=== PATIENT | male | born 1980 | race Caucasian/White ===

== ENCOUNTER 2019-05-09 17:40 | Inpatient (IN) | payer OTHER ==
[~2019-05-09 17:40] MED LIST: DEXAMETHASONE SOD PHOSPHATE INJ 4 MG/1 ML VIAL ONE; ONDANSETRON HCL INJ/PF 4 MG/2 ML SDV ONE; ROCURONIUM BROMIDE INJ 50 MG/5 ML VIAL IV ONE; SUCCINYLCHOLINE CHLORIDE INJ 200 MG/10 ML VIAL ONE
[2019-05-09] MEDS ORDERED: MORPHINE SULFATE 10 MG/ML INJ IV ONE ×2 (18:26→18:42)
[2019-05-09] MEDS ORDERED: NORMAL SALINE 1000 ML 1,000 ML IV ONE (18:26)
[2019-05-09] MEDS ORDERED: ONDANSETRON HCL INJ/PF 4 MG/2 ML SDV IV ONE (18:26)
[2019-05-09 18:45] LABS: ABSOLUTE EOSINOPHILS # (AUTO) 0.2 10^3/uL (0.0-0.6); ABSOLUTE LYMPHOCYTES (AUTO) 2.4 10^3/uL (0.5-4.7); ABSOLUTE MONOCYTES (AUTO) 1.3 10^3/uL (0.1-1.4); ABSOLUTE NEUT (AUTO) 10.5 10^3/uL (1.7-8.2); BASOPHILS % (AUTO) 0.3 % (0-2); EOSINOPHILS % (AUTO) 1.1 % (0-6); HEMATOCRIT 45.2 % (37.9-51.0); LYMPHOCYTES % (AUTO) 16.8 % (13-45); MEAN CORPUSCULAR HEMOGLOBIN 31.7 pg (27.0-33.4); MEAN CORPUSCULAR HGB CONC 35.4 g/dL (32.0-36.0); MEAN CORPUSCULAR VOLUME 90 fl (80-97); MONOCYTES % (AUTO) 8.8 % (3-13); PLATELET COUNT 259 10^3/uL (150-450); RED BLOOD COUNT 5.04 10^6/uL (4.35-5.55); RED CELL DISTRIBUTION WIDTH 12.3 % (11.5-14.0); TOTAL CELLS COUNTED % (AUTO) 100 %; WHITE BLOOD COUNT 14.4 10^3/uL (4.0-10.5)
--- NOTE | 2019-05-09 18:51 | ER Document Report ---
ED General - General Chief Complaint: Abdominal Pain Stated Complaint: ABDOMINAL PAIN Time Seen by Provider: 05/09/19 18:26 TRAVEL OUTSIDE OF THE [place] IN LAST 30 DAYS: No - HPI Notes: Patient is a 38-year-old male that presents to the emergency department for chief complaint of right lower quadrant abdominal pain. Patient has had constant sharp pain in his right lower quadrant for the last 2 days. He reports the pain has increased in intensity. He reports nausea with 2 episodes of emesis. He denies any change in bowel movements and denies diarrhea. He has no history of abdominal surgery in the past. He does not believe he has had a fever. Last oral intake was at 3 PM. Patient has not taken any medication at home for pain. He states any movement including coughing, the bumps in the road on the way to the ER, and sitting up in bed causes severe pain. Past Medical History: Right hip arthritis, right eye blindness Past Surgical History: Negative Social History: Daily tobacco, occasional alcohol, denies drug use Family History: Reviewed and noncontributory for presenting illness Allergies: Reviewed, see documented allergy list. REVIEW OF SYSTEMS: CONSTITUTIONAL : No fever No chills diaphoresis No recent illness EENT: No vision changes No congestion No sore throat CARDIOVASCULAR: No chest pain No palpitations RESPIRATORY: No shortness of breath No cough No difficulty breathing GASTROINTESTINAL: abdominal pain nausea vomiting No diarrhea GENITOURINARY: No dysuria No hematuria No difficulty urinating MUSCULOSKELETAL: No back pain No leg pain No arm pain SKIN: No rashes No lesions LYMPHATIC: No swollen, enlarged glands. NEUROLOGICAL: No lightheadedness No headache No weakness No paresthesias PSYCHIATRIC: No anxiety No depression PHYSICAL EXAMINATION: Vital signs reviewed, nursing noted reviewed. GENERAL: Ill-appearing, obese and in moderate acute distress. HEAD: Atraumatic, normocephalic. EYES: Eyes appear normal, extraocular movements intact, sclera anicteric, conjunctiva are normal. ENT: nares patent, oropharynx clear without exudates. Moist mucous membranes. NECK: Normal range of motion, supple without lymphadenopathy LUNGS: Breath sounds clear to auscultation bilaterally and equal. No wheezes rales or rhonchi. HEART: Tachycardic rate and regular rhythm without murmurs ABDOMEN: Diffusely tender with right lower quadrant guarding, positive rebound tenderness, abdominal pain with heel strike, soft. Positive psoas sign EXTREMITIES: Nontender, good range of motion, no pitting or edema. NEUROLOGICAL: No focal neurological deficits. Moves all extremities spontaneously Motor and sensory grossly intact on exam. PSYCH: Anxious mood, normal affect. SKIN: Warm, diaphoretic, normal turgor, no rashes or lesions noted on exposed skin - Related Data Allergies/Adverse Reactions: No Known Allergies Allergy (Verified 05/09/19 17:42) Past Medical History - Social History Smoking Status: Current Every Day Smoker Family History: Reviewed & Not Pertinent Physical Exam - Vital signs Vitals: Temp Pulse Resp BP Pulse Ox 97.8 F 112 H 16 169/104 H 96 05/09/19 17:43 05/09/19 17:43 05/09/19 17:43 05/09/19 17:43 05/09/19 17:43 Course - Re-evaluation Re-evalutation: 05/09/19 18:51 Vitals reviewed. Nursing notes reviewed. Patient presented tachycardic and diaphoretic. He appears uncomfortable and has a peritoneal abdominal exam. He was given IV fluids, Zofran and morphine for symptomatic management. I discussed his care with Dr. Decker for the likelihood of ruptured appendicitis with peritonitis. He requested a noncontrast CT scan be done now. Patient does have a leukocytosis of 14 05/09/19 19:[address] scan is consistent with ruptured appendicitis. Patient evaluated in the ED by Dr. Decker and will be taken to surgery from the emergency room. Laboratory 05/09/19 05/09/19 18:25 18:25 WBC 14.4 H RBC 5.04 Hgb 16.0 Hct 45.2 MCV 90 MCH 31.7 MCHC 35.4 RDW 12.3 Plt Count 259 Seg Neutrophils % 73.0 Lymphocytes % 16.8 Monocytes % 8.8 Eosinophils % 1.1 Basophils % 0.3 Absolute Neutrophils 10.5 H Absolute Lymphocytes 2.4 Absolute Monocytes 1.3 Absolute Eosinophils 0.2 Absolute Basophils 0.0 Sodium 136.8 L Potassium 4.5 Chloride 100 Carbon Dioxide 26 Anion Gap 11 BUN 13 Creatinine 0.64 Est GFR ( Amer) > 60 Est GFR (Non-Af Amer) > 60 Glucose 110 Calcium 9.7 Total Bilirubin 1.4 H Direct Bilirubin 0.4 Neonat Total Bilirubin Not Reportable Neonat Direct Bilirubin Not Reportable Neonat Indirect Bili Not Reportable AST 198 H ALT 405 H Alkaline Phosphatase 85 Total Protein 8.5 H Albumin 4.6 Lipase 50.9 - Vital Signs Vital signs: Temp Pulse Resp BP Pulse Ox 97.7 F 83 20 144/80 H 96 05/09/19 19:53 05/09/19 19:53 05/09/19 19:53 05/09/19 19:53 05/09/19 19:53 - Laboratory Result Diagrams: 05/09/19 18:25 05/09/19 18:25 Laboratory results interpreted by me: 05/09/19 05/09/19 18:25 18:25 WBC 14.4 H Absolute Neutrophils 10.5 H Sodium 136.8 L Total Bilirubin 1.4 H AST 198 H ALT 405 H Total Protein 8.5 H Critical Care Note - Critical Care Note Total time excluding time spent on procedures (mins): 35 Comments: Critical care time 35 exclusive from separate billable procedures for a patient requiring complex medical decision making, and high potential for clinical deterioration. Time spent obtaining history from patient or surrogate, discussions with consultants, development of treatment plan with patient or surrogate, evaluation of patient's response to treatment, examination of patient, ordering and performing treatments and interventions, ordering and review of laboratory studies, re-evaluation of patient's condition, ordering and review of radiographic studies and review of old charts Discharge - Discharge Clinical Impression: Ruptured appendicitis Sepsis Qualifiers: Sepsis type: sepsis due to unspecified organism Qualified Code(s): A41.9 - Sepsis, unspecified organism Condition: Good Disposition: ADMITTED INPATIENT Admitting Provider: Surgicalist Unit Admitted: OR
[2019-05-09 18:56] LABS: ALANINE AMINOTRANSFERASE 405 U/L (21-72); ALBUMIN 4.6 g/dL (3.5-5.0); ALKALINE PHOSPHATASE 85 U/L (38-126); ANION GAP 11 (5-19); ASPARTATE AMINO TRANSFERASE 198 U/L (17-59); BILIRUBIN,DIRECT 0.4 mg/dL (0.0-0.4); BILIRUBIN,TOTAL 1.4 mg/dL (0.2-1.3); BLOOD UREA NITROGEN 13 mg/dL (7-20); CALCIUM 9.7 mg/dL (8.4-10.2); CARBON DIOXIDE 26 mmol/L (22-30); CHLORIDE 100 mmol/L (98-107); GLUCOSE 110 mg/dL (75-110); LIPASE 50.9 U/L (23-300); POTASSIUM 4.5 mmol/L (3.6-5.0); SODIUM 136.8 mmol/L (137-145); TOTAL PROTEIN 8.5 g/dL (6.3-8.2)
[2019-05-09] MEDS ORDERED: PIPERACILLIN/TAZOBACTAM 3.375 GM VIAL IV ONE (19:13)
--- NOTE | 2019-05-09 19:46 | PDOC H&P ---
History of Present Illness Admission Date/PCP: 05/09/19 History of Present Illness: AJ JURADO III is a 38 year old malethat presents to the emergency department for chief complaint of right lower quadrant abdominal pain. Patient has had constant sharp pain in his right lower quadrant for the last 2 days. He reports the pain has increased in intensity. He reports nausea with 2 episodes of emesis. He denies any change in bowel movements and denies diarrhea. He has no history of abdominal surgery in the past. He does not believe he has had a fever. Last oral intake was at 3 PM. Patient has not taken any medication at home for pain. He states any movement including coughing, the bumps in the road on the way to the ER, and sitting up in bed causes severe pain Social History Smoking Status: Current Every Day Smoker Family History Parental Family History Reviewed: No Children Family History Reviewed: NA Sibling(s) Family History Reviewed.: NA Medication/Allergy Allergies/Adverse Reactions: No Known Allergies Allergy (Verified 05/09/19 17:42) Review of Systems Constitutional: PRESENT: anorexia, chills, fatigue, fever(s) Eyes: ABSENT: visual disturbances Ears: ABSENT: hearing changes Nose, Mouth, and Throat: ABSENT: as per HPI, headache(s), mouth pain, sore throat, vertigo, other Breasts: ABSENT: as per HPI, other Cardiovascular: ABSENT: as per HPI, chest pain, dyspnea on exertion, edema, orthropnea, palpitations, other Respiratory: ABSENT: as per HPI, cough, dyspnea, hemoptysis, sputum, other Gastrointestinal: PRESENT: abdominal pain, nausea, vomiting Genitourinary: ABSENT: dysuria, hematuria Musculoskeletal: PRESENT: other - Right hip pain Integumentary: ABSENT: rash, wounds Neurological: ABSENT: abnormal gait, abnormal speech, confusion, dizziness, focal weakness, syncope Psychiatric: ABSENT: anxiety, depression, homidical ideation, suicidal ideation Endocrine: ABSENT: cold intolerance, heat intolerance, polydipsia, polyuria Hematologic/Lymphatic: ABSENT: easy bleeding, easy bruising Physical Exam Vital Signs: Temp Pulse Resp BP Pulse Ox 97.8 F 112 H 16 169/104 H 96 05/09/19 17:43 05/09/19 17:43 05/09/19 17:43 05/09/19 17:43 05/09/19 17:43 Intake & Output 05/08/19 05/09/19 05/10/19 06:59 06:59 06:59 Weight 119.8 kg General appearance: PRESENT: mild distress, obese Head exam: PRESENT: normocephalic Eye exam: PRESENT: EOMI Ear exam: PRESENT: normal external ear exam Mouth exam: PRESENT: moist Neck exam: PRESENT: full ROM Respiratory exam: PRESENT: clear to auscultation [place] Cardiovascular exam: PRESENT: RRR Pulses: PRESENT: normal radial pulses, normal femoral pulses Vascular exam: PRESENT: normal capillary refill GI/Abdominal exam: PRESENT: firm, guarding, rebound Rectal exam: PRESENT: deferred Extremities exam: PRESENT: full ROM Musculoskeletal exam: PRESENT: full ROM Neurological exam: PRESENT: alert, awake, oriented to person, oriented to place Psychiatric exam: PRESENT: appropriate affect Skin exam: PRESENT: dry Results Laboratory Results: 05/09/19 18:25 05/09/19 18:25 05/09/19 05/09/19 18:25 18:25 WBC 14.4 H RBC 5.04 Hgb 16.0 Hct 45.2 MCV 90 MCH 31.7 MCHC 35.4 RDW 12.3 Plt Count 259 Seg Neutrophils % 73.0 Lymphocytes % 16.8 Monocytes % 8.8 Eosinophils % 1.1 Basophils % 0.3 Absolute Neutrophils 10.5 H Absolute Lymphocytes 2.4 Absolute Monocytes 1.3 Absolute Eosinophils 0.2 Absolute Basophils 0.0 Sodium 136.8 L Potassium 4.5 Chloride 100 Carbon Dioxide 26 Anion Gap 11 BUN 13 Creatinine 0.64 Est GFR ( Amer) > 60 Est GFR (Non-Af Amer) > 60 Glucose 110 Calcium 9.7 Total Bilirubin 1.4 H AST 198 H ALT 405 H Alkaline Phosphatase 85 Total Protein 8.5 H Albumin 4.6 Lipase 50.9 Assessment & Plan - Time Critical Time spent with patient: 35 or more minutes - Plan Summary Plan Summary: Perforated appendicitis Plan laparoscopic possible open appendectomy Risk benefits of the procedure including bleeding infection pulmonary embolism stroke myocardial infarction and have been discussed injury to adjacent organs including the small bowel: Ureters bladder have been discussed need for additional surgery sepsis recurrent abdominal infections and abscesses have been discussed He understands these risks and benefits and agrees to proceed
[2019-05-09] MEDS ORDERED: MIDAZOLAM 2 MG/2 ML INJ ONE (19:47)
[2019-05-09] MEDS ORDERED: FENTANYL CITRATE INJ/PF 100 MCG/2 ML AMPUL ONE ×2 (19:47→21:12)
[2019-05-09] MEDS ORDERED: MORPHINE SULFATE 10 MG/ML INJ ONE (19:48)
[2019-05-09] MEDS ORDERED: PROPOFOL INJ 200 MG/20 ML VIAL IV ONE (19:48)
[2019-05-09] MEDS ORDERED: BUPIVACAINE HCL 0.25% /EPINEPHRINE INJ/PF 30 ML SDV ONE (19:55)
--- NOTE | 2019-05-09 20:03 | RADIOLOGY REPORT (SQ) ---
EXAM DESCRIPTION: CT ABD/PELVIS NO ORAL OR IV COMPLETED DATE/TIME: 05/09/2019 6:50 pm REASON FOR STUDY: RLQ pain COMPARISON: None. TECHNIQUE: CT scan of the abdomen and pelvis performed without intravenous or oral contrast. Images reviewed with lung, soft tissue, and bone windows. Reconstructed coronal and sagittal MPR images revi ewed. All images stored on PACS. All CT scanners at this facility use dose modulation, iterative reconstruction, and/or weight based d osing when appropriate to reduce radiation dose to as low as reasonably achievable (ALARA). [facility]: Dose Right [facility]: CareDose [facility]: Dose Right [facility]: Teradose 4D [facility]: Smart seedchange RADIATION DOSE: CT Rad equipment meets quality standard of care and radiation dose reduction techniq ues were employed. CTDIvol: 18.7 mGy. DLP: 1074 mGy-cm.mGy. LIMITATIONS: None. FINDINGS: LOWER CHEST: Mild bibasilar atelectasis. No pleural effusion. NON-CONTRASTED LIVER, SPLEEN, ADRENALS: Evaluation limited by lack of IV contrast. No identified sign ificant masses. PANCREAS: No peripancreatic inflammatory changes. GALLBLADDER: No identified stones by CT criteria. No inflammatory changes to suggest cholecystitis. RIGHT KIDNEY AND URETER: Assessment for masses limited by lack of IV contrast. No significant calci fications. No hydronephrosis or hydroureter. LEFT KIDNEY AND URETER: Assessment for masses limited by lack of IV contrast. No significant calcif ications. No hydronephrosis or hydroureter. AORTA AND RETROPERITONEUM: No abdominal aortic aneurysm. No retroperitoneal masses or hemorrhage. BOWEL AND PERITONEAL CAVITY: No dilated bowel loops to suggest obstruction. APPENDIX: A normal appendix is not identified. Extensive inflammatory changes are seen at the right lower quadrant adjacent to the cecum. Limited evaluation for abscess formation in the absence of int ravenous contrast. There are mildly enlarged lymph nodes at the right lower quadrant measuring 10 mm in short axis. PELVIS, BLADDER, AND ABDOMINAL WALL:No pelvic mass. No free fluid. Bladder decompressed. BONES: No significant findings. IMPRESSION: 1. A normal appendix is not identified. Extensive inflammatory changes at the right low er quadrant adjacent to the cecum, may be secondary to perforated acute appendicitis with phlegmonous changes. Limited evaluation for abscess formation in the absence of intravenous contrast. Clinical correlation recommended. 2. Mild right lower quadrant adenopathy. COMMENT: Quality ID # [id number]: Final reports with documentation of one or more dose reduction techniques (e.g., Automated exposure control, adjustment of the mA and/or kV according to patient size, use of iterative reconstruction technique) TECHNICAL DOCUMENTATION: JOB ID: [id number] 2010 [employer]- All Rights Reserved Reading location - IP/workstation name: [email or web address]
[2019-05-09] MEDS ORDERED: MEPERIDINE HCL/PF INJ 25 MG/1 ML DISP.SYRIN IV PRN (20:56)
[2019-05-09] MEDS ORDERED: PROMETHAZINE HCL INJ 25 MG/1 ML VIAL IV PRN ×2 (20:56)
[2019-05-09] MEDS ORDERED: MORPHINE SULFATE 10 MG/ML INJ IV PRN (20:56)
[2019-05-09] MEDS ORDERED: FENTANYL CITRATE INJ/PF 100 MCG/2 ML AMPUL IV PRN ×3 (20:56)
[2019-05-09] MEDS ORDERED: DIPHENHYDRAMINE HCL 50 MG/ML VIAL IV PRN (20:56)
[2019-05-09] MEDS ORDERED: SUGAMMADEX SODIUM 200 MG/2 ML SDV IV ONE (21:12)
[2019-05-09] MEDS ORDERED: ONDANSETRON HCL INJ/PF 4 MG/2 ML SDV IV PRN (22:15)
[2019-05-09] MEDS ORDERED: DEXTROSE 40% GEL 15 GM TUBE PO PRN ×2 (22:15)
[2019-05-09] MEDS ORDERED: GLUCAGON,HUMAN RECOMB 1 MG INJ SUBCUT PRN (22:15)
[2019-05-09] MEDS ORDERED: DEXTROSE 50%-WATER 25 GM/50 ML DISP.SYRIN IV PRN ×2 (22:15)
[2019-05-09] MEDS ORDERED: ACETAMINOPHEN 1,000 MG/100 ML RTUPB IV ONE (22:15)
[2019-05-09] MEDS ORDERED: LORAZEPAM INJ 2 MG/1 ML VIAL ONE (22:17)
[2019-05-09] MEDS ORDERED: KETOROLAC TROMETHAMINE 60 MG/2 ML SDV ONE (22:17)
[2019-05-09] MEDS ORDERED: KETOROLAC TROMETHAMINE INJ/PF 30 MG/1 ML SDV IV SCH (22:30)
--- NOTE | 2019-05-09 22:33 | Operative Report ---
Nonrecallable Operative Report DATE OF SURGERY: 05/09/19 PREOPERATIVE DIAGNOSIS: perforated appendix POSTOPERATIVE DIAGNOSIS: perforated cecum OPERATION: diagnostic laparoscopy converted to open rt hemicolectomy SURGEON: ESTEBAN CHÁVEZ ANESTHESIA: GA TISSUE REMOVED OR ALTERED: rt colon COMPLICATIONS: none ESTIMATED BLOOD LOSS: 100 INTRAOPERATIVE FINDINGS: perforated colon PROCEDURE: Patient was brought to the operating room and awake alert stable condition placed the operative table supine position induced under general anesthesia and intubated There was prepped and draped in usual sterile manner for the procedure. After appropriate timeout a Veress needle was placed into the umbilicus and the abdomen was insufflated with 6 L of CO2 gas a supraumbilical 10 mm incision was made with a 15 blade and a 10 mm port placed in the abdominal cavity interabdominal visualization revealed no evidence of Veress needle or trocar injury left lower quadrant 12 mm port was placed under direct vision and Left-sided 5 mm port all under direct vision After we had good visualization we noted the cecum was involved in a phlegmon with some small bowel loops heaped up on top of the phlegmon once these were gently we identified the cecum. Cecum had an area of necrosis and I felt initially that it was at the base of the appendix but as I mobilized the appendix and noted that the appendix was normal. It appeared that the patient had a perforated cecum within normal based appendix and the terminal ileum also appeared to be normal. I therefore began mobilizing the right colon with the LigaSure device along the white line of T[place]t. As we completed we mobilized the a; in the hepatic flexure. Once this was accomplished was then had to make a transverse incision on the right abdomen to gain access to the specimen. We did this by making a transverse incision with a 10 blade just lateral to the umbilicus and carried our dissection down through subcutaneous tissue with Bovie cautery the fascia was then divided with Bovie cautery. Once we divided the rectus posterior sheath we were able to deliver the right colon and terminal ileum and into the wound. The terminal ileum and cecum appeared to be thickened and initially thought it may have a be Crohn's disease however there was a palpable mass within the cecum. Came across the terminal ileum with one firing of the ABDULAZIZ stapler with a blue cartridge approximately 5 cm proximal to the cecum and then divided the right co lonic mesentery with the LigaSure device all the way to the mid transverse colon just to the right of the middle colic artery. I then divided the proximal transverse colon with one from the Endo ABDULAZIZ stapler with a blue load. This allowed us to remove the specimen. We then approximated the terminal ileum to the transverse colon with 2-0 silk sutures and created a ileocolonic anastomosis in 2 layers the outer layer being 2-0 silk and the running inner layer 3-0 Vicryl. The mesenteric defect was then closed with interrupted 2-0 silk. We then returned the bowel back into the abdominal cavity irrigated the abdominal cavity with normal saline and suctioned dry. We then closed the posterior sheath with a running 0 Vicryl suture and the anterior sheath was closed with interrupted #1 Vicryl suture. Skin incisions were then all closed with standard skin clips which completed the procedure Estimated blood loss of procedure 100 cc sponge needle counts were correct x2 the patient was awakened in the operating explained transferred recovery in stable condition no complications.
[2019-05-09] MEDS ORDERED: FAMOTIDINE INJ/PF 20 MG/2 ML SDV IV ONE (22:45)
[2019-05-09] MEDS: ACETAMINOPHEN INJ/PF 1000 MG/100 ML SDV IV SCH (23:38)
[2019-05-10] MEDS: POTASSI CL 20 MEQ/D5-1/2NS 1L 1,000 ML IV PRN ×3 (01:20→20:10)
[2019-05-10] MEDS ORDERED: HYDRALAZINE HCL INJ/PF 20 MG/1 ML SDV IV ONE (01:30)
[2019-05-10] MEDS: MORPHINE SULFATE 10 MG/ML INJ IV PRN ×5 (02:06→20:05)
[2019-05-10] MEDS: HEPARIN SOD (PORCINE) 5,000 UNIT/ML 1 ML SYRINGE SUBCUT SCH ×3 (05:03→23:16)
[2019-05-10] MEDS: ACETAMINOPHEN INJ/PF 1000 MG/100 ML SDV IV SCH (05:08)
[2019-05-10] MEDS: NICOTINE 21 MG/24 HR PATCH.TD24 TD PRN (05:09)
[2019-05-10 07:33] LABS: ABSOLUTE MONOCYTES (AUTO) 0.9 10^3/uL (0.1-1.4); ABSOLUTE NEUT (AUTO) 13.5 10^3/uL (1.7-8.2); BASOPHILS % (AUTO) 0.1 % (0-2); HEMATOCRIT 38.7 % (37.9-51.0); LYMPHOCYTES % (AUTO) 6.7 % (13-45); MEAN CORPUSCULAR HEMOGLOBIN 31.5 pg (27.0-33.4); MEAN CORPUSCULAR HGB CONC 34.9 g/dL (32.0-36.0); MEAN CORPUSCULAR VOLUME 90 fl (80-97); MONOCYTES % (AUTO) 5.9 % (3-13); PLATELET COUNT 217 10^3/uL (150-450); RED BLOOD COUNT 4.29 10^6/uL (4.35-5.55); RED CELL DISTRIBUTION WIDTH 12.3 % (11.5-14.0); SEGMENTED NEUTROPHILS % (AUTO) 87.3 % (42-78); TOTAL CELLS COUNTED % (AUTO) 100 %; WHITE BLOOD COUNT 15.5 10^3/uL (4.0-10.5)
[2019-05-10 07:37] LABS: HEMOGLOBIN 13.5 g/dL (13.5-17.0)
[2019-05-10 08:08] LABS: ANION GAP 8 (5-19); BLOOD UREA NITROGEN 14 mg/dL (7-20); CALCIUM 8.4 mg/dL (8.4-10.2); CARBON DIOXIDE 23 mmol/L (22-30); CHLORIDE 103 mmol/L (98-107); GLUCOSE 203 mg/dL (75-110); POTASSIUM 4.8 mmol/L (3.6-5.0); SODIUM 134.4 mmol/L (137-145)
[2019-05-10 08:14] LABS: APPEARANCE,URINE CLEAR; BILIRUBIN,URINE NEGATIVE (NEGATIVE); COLOR,URINE AMBER; GLUCOSE, URINE 150 mg/dL (NEGATIVE); KETONES,URINE NEGATIVE (NEGATIVE); LEUKOCYTE ESTERASE,URINE NEGATIVE (NEGATIVE); NITRITE,URINE NEGATIVE (NEGATIVE); PROTEIN,URINE NEGATIVE (NEGATIVE)
[2019-05-10] MEDS: FAMOTIDINE INJ/PF 20 MG/2 ML SDV IV SCH ×2 (10:08→23:15)
--- NOTE | 2019-05-10 10:14 | PDOC PROGRESS REPORT ---
Subjective Progress Note for:: 05/10/19 Subjective:: Patient awake, soft-spoken; complaining of some incisional pain. Reason For Visit: PERFORATED COLON Physical Exam Vital Signs: Temp Pulse Resp BP Pulse Ox 97.9 F 86 17 136/71 H 92 05/10/19 08:02 05/10/19 08:02 05/10/19 08:02 05/10/19 08:02 05/10/19 08:02 Intake & Output 05/09/19 05/10/19 05/11/19 06:59 06:59 06:59 Intake Total 3790 Output Total 1850 Balance 1940 Weight 124.8 kg General appearance: PRESENT: mild distress GI/Abdominal exam: PRESENT: other - Operative incisions covered with dry dressings. Abdomen is appropriately tender. Results Laboratory Results: 05/10/19 07:00 05/10/19 07:00 05/09/19 05/09/19 05/10/19 18:25 18:25 00:53 WBC 14.4 H RBC 5.04 Hgb 16.0 Hct 45.2 MCV 90 MCH 31.7 MCHC 35.4 RDW 12.3 Plt Count 259 Seg Neutrophils % 73.0 Lymphocytes % 16.8 Monocytes % 8.8 Eosinophils % 1.1 Basophils % 0.3 Absolute Neutrophils 10.5 H Absolute Lymphocytes 2.4 Absolute Monocytes 1.3 Absolute Eosinophils 0.2 Absolute Basophils 0.0 Sodium 136.8 L Potassium 4.5 Chloride 100 Carbon Dioxide 26 Anion Gap 11 BUN 13 Creatinine 0.64 Est GFR ( Amer) > 60 Est GFR (Non-Af Amer) > 60 Glucose 110 Lactic Acid 1.0 Calcium 9.7 Total Bilirubin 1.4 H AST 198 H ALT 405 H Alkaline Phosphatase 85 Total Protein 8.5 H Albumin 4.6 Lipase 50.9 Urine Color Urine Appearance Urine pH Ur Specific [place] Urine Protein Urine Glucose (UA) Urine Ketones Urine Blood Urine Nitrite Ur Leukocyte Esterase Urine WBC (Auto) Urine RBC (Auto) 05/10/19 05/10/19 05/10/19 07:00 07:00 07:40 WBC 15.5 H RBC 4.29 L Hgb 13.5 D Hct 38.7 MCV 90 MCH 31.5 MCHC 34.9 RDW 12.3 Plt Count 217 Seg Neutrophils % 87.3 H Lymphocytes % 6.7 L Monocytes % 5.9 Eosinophils % 0.0 Basophils % 0.1 Absolute Neutrophils 13.5 H Absolute Lymphocytes 1.0 Absolute Monocytes 0.9 Absolute Eosinophils 0.0 Absolute Basophils 0.0 Sodium 134.4 L Potassium 4.8 Chloride 103 Carbon Dioxide 23 Anion Gap 8 BUN 14 Creatinine 0.55 Est GFR ( Amer) > 60 Est GFR (Non-Af Amer) > 60 Glucose 203 H Lactic Acid Calcium 8.4 Total Bilirubin AST ALT Alkaline Phosphatase Total Protein Albumin Lipase Urine Color GIULIA Urine Appearance CLEAR Urine pH 7.0 Ur Specific [place] 1.030 Urine Protein NEGATIVE Urine Glucose (UA) 150 H Urine Ketones NEGATIVE Urine Blood NEGATIVE Urine Nitrite NEGATIVE Ur Leukocyte Esterase NEGATIVE Urine WBC (Auto) 0 Urine RBC (Auto) 1 Impressions: Abdomen/Pelvis CT 05/09/19 18:35 IMPRESSION: 1. A normal appendix is not identified. Extensive inflammatory changes at the right lower quadrant adjacent to the cecum, may be secondary to perforated acute appendicitis with phlegmonous changes. Limited evaluation for abscess formation in the absence of intravenous contrast. Clinical correlation recommended. 2. Mild right lower quadrant adenopathy. Assessment & Plan - Diagnosis (1) S/P right colectomy Is this a current diagnosis for this admission?: Yes Plan: Impression: Patient is 1 day status post emergent laparoscopic, conversion to open right hemicolectomy for phlegmonous mass suspicious for cecal malignancy but doing well, no complications. Recommendations: 1. We will discontinue oxygen, [place], get patient up out of bed and ambulating. Hopefully can start on ice chips later today 2. Incentive spirometer. 3. I discussed the provisional operative findings according to my conversation with Dr. Decker as the patient asked me what was found during his exploration. I remarked that there is a mass in the right cecum, and the pathology report is pending. Patient's mother at bedside. (2) Sepsis Qualifiers: Sepsis type: sepsis due to unspecified organism Qualified Code(s): A41.9 - Sepsis, unspecified organism Is this a current diagnosis for this admission?: Yes
[2019-05-10] MEDS: ACETAMINOPHEN 1,000 MG/100 ML RTUPB IV SCH ×3 (13:33→23:15)
[2019-05-10] MEDS: KETOROLAC TROMETHAMINE INJ/PF 30 MG/1 ML SDV IV PRN (19:01)
[2019-05-11] MEDS: NICOTINE 21 MG/24 HR PATCH.TD24 TD PRN ×2 (00:07→11:47)
[2019-05-11] MEDS: MORPHINE SULFATE 10 MG/ML INJ IV PRN ×5 (00:28→23:13)
[2019-05-11] MEDS: HEPARIN SOD (PORCINE) 5,000 UNIT/ML 1 ML SYRINGE SUBCUT SCH ×3 (05:47→22:10)
[2019-05-11] MEDS: KETOROLAC TROMETHAMINE INJ/PF 30 MG/1 ML SDV IV PRN ×2 (05:51→16:23)
[2019-05-11] MEDS: POTASSI CL 20 MEQ/D5-1/2NS 1L 1,000 ML IV PRN ×3 (05:51→22:14)
[2019-05-11] MEDS: ACETAMINOPHEN 1,000 MG/100 ML RTUPB IV SCH ×4 (05:51→23:13)
--- NOTE | 2019-05-11 07:53 | PDOC PROGRESS REPORT ---
Subjective Progress Note for:: 05/11/19 Subjective:: feels ok Reason For Visit: PERFORATED COLON pod 2 Physical Exam Vital Signs: Temp Pulse Resp BP Pulse Ox 98.8 F 70 16 165/90 H 95 05/10/19 19:39 05/10/19 23:00 05/10/19 23:00 05/10/19 23:00 05/10/19 23:00 Intake & Output 05/10/19 05/11/19 05/12/19 06:59 06:59 06:59 Intake Total 3790 3400 Output Total 1850 950 Balance 1940 2450 Weight 124.8 kg General appearance: PRESENT: no acute distress Eye exam: PRESENT: EOMI Mouth exam: PRESENT: moist Neck exam: PRESENT: full ROM Respiratory exam: PRESENT: clear to auscultation [place] Cardiovascular exam: PRESENT: RRR Pulses: PRESENT: +2 pedal pulses bilateral GI/Abdominal exam: PRESENT: soft Rectal exam: PRESENT: deferred Extremities exam: PRESENT: full ROM Musculoskeletal exam: PRESENT: full ROM Neurological exam: PRESENT: alert, awake, oriented to person, oriented to place Psychiatric exam: PRESENT: appropriate affect Skin exam: PRESENT: dry Results Laboratory Results: 05/10/19 07:00 05/10/19 07:00 05/10/19 05/10/19 07:00 07:40 Sodium 134.4 L Potassium 4.8 Chloride 103 Carbon Dioxide 23 Anion Gap 8 BUN 14 Creatinine 0.55 Est GFR ( Amer) > 60 Est GFR (Non-Af Amer) > 60 Glucose 203 H Calcium 8.4 Urine Color GIULIA Urine Appearance CLEAR Urine pH 7.0 Ur Specific [place] 1.030 Urine Protein NEGATIVE Urine Glucose (UA) 150 H Urine Ketones NEGATIVE Urine Blood NEGATIVE Urine Nitrite NEGATIVE Ur Leukocyte Esterase NEGATIVE Urine WBC (Auto) 0 Urine RBC (Auto) 1 Impressions: Abdomen/Pelvis CT 05/09/19 18:35 IMPRESSION: 1. A normal appendix is not identified. Extensive inflammatory changes at the right lower quadrant adjacent to the cecum, may be secondary to perforated acute appendicitis with phlegmonous changes. Limited evaluation for abscess formation in the absence of intravenous contrast. Clinical correlation recommended. 2. Mild right lower quadrant adenopathy. Assessment & Plan - Plan Summary Plan Summary: s/p lap assisted rt hemicolectomy for cecal perforation doing ok this am passing flatus will start clears increase activity.
[2019-05-11] MEDS: FAMOTIDINE INJ/PF 20 MG/2 ML SDV IV SCH ×2 (11:30→22:15)
[2019-05-12] MEDS: MORPHINE SULFATE 10 MG/ML INJ IV PRN ×3 (04:07→23:08)
[2019-05-12] MEDS: ACETAMINOPHEN 1,000 MG/100 ML RTUPB IV SCH ×4 (05:10→23:08)
[2019-05-12] MEDS: POTASSI CL 20 MEQ/D5-1/2NS 1L 1,000 ML IV PRN ×3 (05:11→23:46)
[2019-05-12] MEDS: HEPARIN SOD (PORCINE) 5,000 UNIT/ML 1 ML SYRINGE SUBCUT SCH ×3 (05:12→22:00)
[2019-05-12 06:27] LABS: ABSOLUTE EOSINOPHILS # (AUTO) 0.2 10^3/uL (0.0-0.6); ABSOLUTE LYMPHOCYTES (AUTO) 1.7 10^3/uL (0.5-4.7); ABSOLUTE MONOCYTES (AUTO) 0.7 10^3/uL (0.1-1.4); ABSOLUTE NEUT (AUTO) 3.8 10^3/uL (1.7-8.2); BASOPHILS % (AUTO) 0.6 % (0-2); EOSINOPHILS % (AUTO) 3.4 % (0-6); HEMATOCRIT 35.4 % (37.9-51.0); HEMOGLOBIN 12.5 g/dL (13.5-17.0); LYMPHOCYTES % (AUTO) 25.9 % (13-45); MEAN CORPUSCULAR HEMOGLOBIN 31.9 pg (27.0-33.4); MEAN CORPUSCULAR HGB CONC 35.3 g/dL (32.0-36.0); MEAN CORPUSCULAR VOLUME 90 fl (80-97); MONOCYTES % (AUTO) 10.8 % (3-13); PLATELET COUNT 211 10^3/uL (150-450); RED BLOOD COUNT 3.92 10^6/uL (4.35-5.55); RED CELL DISTRIBUTION WIDTH 12.3 % (11.5-14.0); SEGMENTED NEUTROPHILS % (AUTO) 59.3 % (42-78); TOTAL CELLS COUNTED % (AUTO) 100 %; WHITE BLOOD COUNT 6.4 10^3/uL (4.0-10.5)
[2019-05-12 06:50] LABS: ANION GAP 7 (5-19); BLOOD UREA NITROGEN 9 mg/dL (7-20); CALCIUM 8.3 mg/dL (8.4-10.2); CARBON DIOXIDE 24 mmol/L (22-30); CHLORIDE 106 mmol/L (98-107); GLUCOSE 115 mg/dL (75-110); POTASSIUM 4.2 mmol/L (3.6-5.0); SODIUM 136.6 mmol/L (137-145)
[2019-05-12] MEDS: KETOROLAC TROMETHAMINE INJ/PF 30 MG/1 ML SDV IV PRN (08:40)
[2019-05-12] MEDS: FAMOTIDINE INJ/PF 20 MG/2 ML SDV IV SCH ×2 (09:30→22:05)
[2019-05-12] MEDS ORDERED: HYDROCODONE/ACETAMINOPHEN 10-325 MG TABLET PO PRN (10:00)
[2019-05-12] MEDS: FAMOTIDINE 20 MG TABLET PO SCH ×2 (10:12→22:04)
--- NOTE | 2019-05-12 13:10 | PDOC PROGRESS REPORT ---
Subjective Progress Note for:: 05/12/19 Reason For Visit: PERFORATED COLON Physical Exam Vital Signs: Temp Pulse Resp BP Pulse Ox 97.8 F 65 16 158/95 H 97 05/12/19 11:18 05/12/19 11:18 05/12/19 11:18 05/12/19 11:18 05/12/19 11:18 Intake & Output 05/11/19 05/12/19 05/13/19 06:59 06:59 06:59 Intake Total 3400 4292 1100 Output Total 950 Balance 2450 4292 1100 Weight 123.2 kg Results Laboratory Results: 05/12/19 05:48 05/12/19 05:48 05/12/19 05/12/19 05:48 05:48 WBC 6.4 RBC 3.92 L Hgb 12.5 L Hct 35.4 L MCV 90 MCH 31.9 MCHC 35.3 RDW 12.3 Plt Count 211 Seg Neutrophils % 59.3 Lymphocytes % 25.9 Monocytes % 10.8 Eosinophils % 3.4 Basophils % 0.6 Absolute Neutrophils 3.8 Absolute Lymphocytes 1.7 Absolute Monocytes 0.7 Absolute Eosinophils 0.2 Absolute Basophils 0.0 Sodium 136.6 L Potassium 4.2 Chloride 106 Carbon Dioxide 24 Anion Gap 7 BUN 9 Creatinine 0.56 Est GFR ( Amer) > 60 Est GFR (Non-Af Amer) > 60 Glucose 115 H Calcium 8.3 L Impressions: Abdomen/Pelvis CT 05/09/19 18:35 IMPRESSION: 1. A normal appendix is not identified. Extensive inflammatory changes at the right lower quadrant adjacent to the cecum, may be secondary to perforated acute appendicitis with phlegmonous changes. Limited evaluation for abscess formation in the absence of intravenous contrast. Clinical correlation recommended. 2. Mild right lower quadrant adenopathy. Assessment & Plan - Diagnosis (1) Perforation of cecum Is this a current diagnosis for this admission?: Yes (2) Colonic mass Is this a current diagnosis for this admission?: Yes - Plan Summary Plan Summary: This is a 38-year-old male status post right hemicolectomy for a perforated colon mass in the cecum. The patient is doing reasonably well this morning. He still complains of pain. He is ambulating in the hallways. He is passing flatus and having bowel movements. I will advance his diet today. I will start oral pain medications. I have encouraged him to continue with his incentive spirometer. I removed his dressing, and encouraged him to shower today. Continue with normal postoperative care. If the patient continues to progress well, anticipate discharge in the next 24 to 48 hours.
[2019-05-12] MEDS: KETOROLAC TROMETHAMINE INJ/PF 30 MG/1 ML SDV IV SCH ×2 (14:33→22:05)
[2019-05-12] MEDS ORDERED: DIPHENHYDRAMINE HCL 50 MG CAPSULE PO PRN (22:32)
[2019-05-13] MEDS: HEPARIN SOD (PORCINE) 5,000 UNIT/ML 1 ML SYRINGE SUBCUT SCH ×2 (05:19→16:01)
[2019-05-13] MEDS: KETOROLAC TROMETHAMINE INJ/PF 30 MG/1 ML SDV IV SCH ×2 (06:11→16:01)
[2019-05-13] MEDS: FAMOTIDINE INJ/PF 20 MG/2 ML SDV IV SCH (09:35)
[2019-05-13] MEDS: FAMOTIDINE 20 MG TABLET PO SCH (09:36)
[2019-05-13] MEDS: MORPHINE SULFATE 10 MG/ML INJ IV PRN (10:29)
[2019-05-13 15:26] VITALS: BP 159/83
== END 2019-05-13 16:04 | disposition home or self-care (01) | DRG 853 ==
LOC: ER 17:40 → EH 19:58 → 5 23:00
PROVIDERS: ADMIT Surgery; ATTEND Surgery
PROC: 0DTF0ZZ Resection of Right Large Intestine, Open Approach (ICD-10-PCS; principal; 2019-05-09 20:30)
DX: A41.9 Sepsis, unspecified organism (principal); K63.1 Perforation of intestine (nontraumatic); C18.0 Malignant neoplasm of cecum; H54.61 Unqualified visual loss, right eye, normal vision left eye; F17.200 Nicotine dependence, unspecified, uncomplicated; E66.9 Obesity, unspecified; Z53.31 Laparoscopic surgical procedure converted to open procedure
CPT/HCPCS: 36415; 74176; 790; 80048; 80053; 81001; 83605; 83690; 85025; 87040; 88309; 94799; 99291; J0131; J0330; J0360; J1100; J1644; J1885; J2060; J2250; J2270; J2405; J2543; J2704; J3010; J3480; J3490; J7030; S0028

== ENCOUNTER → 2019-06-16 | Outpatient (CLI) | payer SELFPAY ==
--- NOTE | 2019-06-16 15:17 | RADIOLOGY REPORT (SQ) ---
EXAM DESCRIPTION: CT CHEST WITH COMPLETED DATE/TIME: 06/16/2019 2:51 pm REASON FOR STUDY: C18.9 MALIGNANT NEOPLASM OF COLON, UNSPECIFIED C18.9 MALIGNANT NEOPLASM OF COLON, UNSPECIFIED COMPARISON: None. TECHNIQUE: CT scan of the chest performed using helical scanning technique with dynamic intravenous contrast injection. Images reviewed with lung, soft tissue and bone windows. Reconstructed coronal and sagittal MPR and MIP images reviewed. All images stored on PACS. All CT scanners at this facility use dose modulation, iterative reconstruction, and/or weight based d osing when appropriate to reduce radiation dose to as low as reasonably achievable (ALARA). [facility]: Dose Right [facility]: CareDose [facility]: Dose Right [facility]: Teradose 4D [facility]: [employer] CONTRAST TYPE AND DOSE: 100 cc Omnipaque 350 RENAL FUNCTION: Creatinine 0.69 RADIATION DOSE: CT Rad equipment meets quality standard of care and radiation dose reduction techniq ues were employed. CTDIvol: 16.7 - 19.8 mGy. DLP: 3109 mGy-cm. . LIMITATIONS: None. FINDINGS: LUNGS AND PLEURA: There are subtle upper lobe predominant centrilobular ground-glass opaci ties diffusely. No dense consolidation. No pleural effusion or pneumothorax. No discrete nodules o r masses. HILAR AND MEDIASTINAL STRUCTURES: No identified masses or abnormal nodes. HEART AND VASCULAR STRUCTURES: No aneurysm or dissection. No central pulmonary emboli. No pericardi al effusion. HARDWARE: None in the chest. UPPER ABDOMEN: See separate report of the CT of the abdomen. THYROID AND OTHER SOFT TISSUES: No masses. No adenopathy. BONES: No significant finding. OTHER: No other significant finding. IMPRESSION: 1. No evidence of intrathoracic metastatic disease. 2. Diffuse subtle upper lobe predominant centrilobular ground-glass opacities which may be related t o atypical infection, inflammatory or related to a hypersensitivity pneumonitis. TECHNICAL DOCUMENTATION: JOB ID: [id number] Quality ID # 436: Final reports with documentation of one or more dose reduction techniques (e.g., Au tomated exposure control, adjustment of the mA and/or kV according to patient size, use of iterative reconstruction technique) 2010 [employer]- All Rights Reserved Reading location - IP/workstation name: [email or web address]
--- NOTE | 2019-06-16 15:27 | RADIOLOGY REPORT (SQ) ---
EXAM DESCRIPTION: CT ABD/PELVIS WITH IV ORAL COMPLETED DATE/TIME: 06/16/2019 2:51 pm REASON FOR STUDY: C18.9 MALIGNANT NEOPLASM OF COLON, UNSPECIFIED C18.9 MALIGNANT NEOPLASM OF COLON, UNSPECIFIED COMPARISON: 05/09/2019 TECHNIQUE: CT scan of the abdomen and pelvis performed using helical scanning technique with dynamic intravenous contrast injection. No oral contrast. Images reviewed with lung, soft tissue, and bone windows. Reconstructed coronal and sagittal MPR images reviewed. Delayed images for evaluation of the urinary system also acquired. All images stored on PACS. All CT scanners at this facility use dose modulation, iterative reconstruction, and/or weight based d osing when appropriate to reduce radiation dose to as low as reasonably achievable (ALARA). [facility]: Dose Right [facility]: CareDose [facility]: Dose Right [facility]: Teradose 4D [facility]: [employer] CONTRAST TYPE AND DOSE: contrast/concentration: Isovue 350.00 mg/ml; Total Contrast Delivered: 100.0 ml; Total Saline Delivered: 72.0 ml RENAL FUNCTION: See chest RADIATION DOSE: . LIMITATIONS: None. FINDINGS: LOWER CHEST: See separate report of the CT of the chest. LIVER: Normal size. No masses. No dilated ducts. SPLEEN: Splenomegaly measuring up to 15.4 cm. PANCREAS: No masses. No significant calcifications. No adjacent inflammation or peripancreatic fluid collections. Pancreatic duct not dilated. GALLBLADDER: No identified stones by CT criteria. No inflammatory changes to suggest cholecystitis. ADRENAL GLANDS: No significant masses or asymmetry. RIGHT KIDNEY AND URETER: Subcentimeter cortical lesion, likely hemorrhagic or proteinaceous cyst, sta ble No significant calcifications. No hydronephrosis or hydroureter. LEFT KIDNEY AND URETER: No solid masses. No significant calcifications. No hydronephrosis or hydr oureter. AORTA AND VESSELS: No aneurysm. No dissection. Renal arteries, SMA, celiac without stenosis. RETROPERITONEUM: No retroperitoneal adenopathy, hemorrhage or masses. BOWEL AND PERITONEAL CAVITY: Postsurgical changes in the right lower quadrant with chain staple line along the cecum. No evidence of focal bowel wall thickening. No evidence of intestinal obstruction. APPENDIX: Surgically absent. PELVIS: No mass. No free fluid. Normal bladder. ABDOMINAL WALL: Subcutaneous stranding within the right lower quadrant, likely from prior surgical in tervention. BONES: No acute bony abnormality. No discrete lytic or blastic osseous lesions. OTHER: No other significant finding. IMPRESSION: 1. No evidence of metastatic disease within the abdomen or pelvis. 2. Postsurgical changes in the right lower quadrant without other evidence of acute intra-abdominal/ pelvic process. 3. Stable splenomegaly, etiology uncertain. TECHNICAL DOCUMENTATION: JOB ID: [id number] Quality ID # 436: Final reports with documentation of one or more dose reduction techniques (e.g., Au tomated exposure control, adjustment of the mA and/or kV according to patient size, use of iterative reconstruction technique) 2010 [employer]- All Rights Reserved Reading location - IP/workstation name: [email or web address]-
== END ==
LOC: RAD 14:22
PROVIDERS: ATTEND Internal Medicine Hematology & Oncology
DX: C18.9 Malignant neoplasm of colon, unspecified (principal); R16.1 Splenomegaly, not elsewhere classified
CPT/HCPCS: 71260; 74177

== ENCOUNTER 2019-07-08 06:30 | Day surgery (SDC) | payer SELFPAY ==
[~2019-07-08 06:30] MED LIST changes: +CEFAZOLIN 1 GM/D5W RTU 1 GM/50 ML RTUPB IV ONE; +CEFAZOLIN 1 GM/D5W RTU 1 GM/50 ML RTUPB IV PRN; -DEXAMETHASONE SOD PHOSPHATE INJ 4 MG/1 ML VIAL ONE; +LACTATED RINGERS 1000 ML IV PRN; +LIDOCAINE 0.5% INJ-PF (5 MG/ML) 50 ML SDV SUBCUT PRN; -ONDANSETRON HCL INJ/PF 4 MG/2 ML SDV ONE; -ROCURONIUM BROMIDE INJ 50 MG/5 ML VIAL IV ONE; -SUCCINYLCHOLINE CHLORIDE INJ 200 MG/10 ML VIAL ONE
[2019-07-08] MEDS ORDERED: FENTANYL CITRATE INJ/PF 100 MCG/2 ML AMPUL IV PRN ×2 (06:52)
[2019-07-08] MEDS ORDERED: DIPHENHYDRAMINE HCL 50 MG/ML VIAL IV PRN (06:52)
[2019-07-08] MEDS ORDERED: MEPERIDINE HCL/PF INJ 25 MG/1 ML DISP.SYRIN IV PRN (06:52)
[2019-07-08] MEDS ORDERED: PROMETHAZINE HCL INJ 25 MG/1 ML VIAL IV PRN ×2 (06:52)
[2019-07-08] MEDS ORDERED: OXYCODONE-ACETAMINOPHEN 5-325 MG TABLET PO PRN ×3 (06:52→09:48)
[2019-07-08] MEDS ORDERED: MIDAZOLAM 2 MG/2 ML INJ ONE ×2 (07:33→08:12)
[2019-07-08] MEDS ORDERED: ONDANSETRON HCL INJ/PF 4 MG/2 ML SDV ONE (07:40)
[2019-07-08 08:00] LABS: HEMATOCRIT 40.9 % (37.9-51.0); HEMOGLOBIN 14.6 g/dL (13.5-17.0); MEAN CORPUSCULAR HEMOGLOBIN 31.4 pg (27.0-33.4); MEAN CORPUSCULAR HGB CONC 35.8 g/dL (32.0-36.0); MEAN CORPUSCULAR VOLUME 88 fl (80-97); PLATELET COUNT 187 10^3/uL (150-450); RED BLOOD COUNT 4.66 10^6/uL (4.35-5.55); WHITE BLOOD COUNT 6.6 10^3/uL (4.0-10.5)
[2019-07-08] MEDS ORDERED: FENTANYL CITRATE INJ/PF 100 MCG/2 ML AMPUL ONE ×2 (08:11→09:50)
[2019-07-08] MEDS ORDERED: PROPOFOL INJ 200 MG/20 ML VIAL IV ONE ×3 (08:12→08:59)
[2019-07-08] MEDS ORDERED: LIDOCAINE 2% INJ (20 MG/ML) 20 ML MDV ONE (08:13)
[2019-07-08] MEDS ORDERED: BUPIVACAINE HCL 0.25% /EPINEPHRINE INJ/PF 30 ML SDV ONE (08:18)
--- NOTE | 2019-07-08 09:41 | Operative Report ---
Nonrecallable Operative Report DATE OF SURGERY: 07/08/19 PREOPERATIVE DIAGNOSIS: Colon cancer POSTOPERATIVE DIAGNOSIS: Colon cancer OPERATION: Port-A-Cath placement placement left chest SURGEON: ESTEBAN CHÁVEZ ANESTHESIA: LMAC TISSUE REMOVED OR ALTERED: None COMPLICATIONS: None ESTIMATED BLOOD LOSS: Cc INTRAOPERATIVE FINDINGS: See procedure note PROCEDURE: The patient was brought to the operating room awake alert in stable condition placed in the operative table supine position and given IV sedation and during the procedure the area over the left infraclavicular fossa was anesthetized with 1% lidocaine with epinephrine using a 16-gauge needle the left subclavian vein was accessed through the needle a J-wire was placed and confirmed in superior vena cava by fluoroscopy. The needle was removed over the wire a tear-away introducer dilator was placed under direct vision using fluoroscopy. The dilator was removed and the Port-A-Cath catheter was placed into the tear-away introducer which was torn away. We then anesthetized the skin just above the left nipple a transverse incision was then made with a 15 blade dissection carried down through subcutaneous tissue with Bovie cautery to create a pocket for the port. We then used the tunnel maker supplied with the kit to tunnel the catheter from the subclavian stick site to the port site. We attached the catheter to the port and placed in the subcutaneous pocket. We then closed the skin by in 2 layers with the subcutaneous stitch using 3-0 Vicryl and skin was closed with intracuticular intracuticular 4-0 Monocryl there is strips completed the procedure estimated blood loss was less than 5 cc sponge needle counts correct x2 the patient was transferred recovery in stable condition chest x-ray pending
--- NOTE | 2019-07-08 09:46 | Discharge Summary ---
Discharge Summary (SDC) - Discharge Final Diagnosis: Colon cancer Date of Surgery: 07/08/19 Condition: Good Forms: ASU Anesthesia D/C Instruction, Discharge POC-Surgical Service Referrals: ESTEBAN CHÁVEZ MD [ACTIVE STAFF] - Discharge Diet: As Tolerated Discharge Activity: Activity As Tolerated Report the Following to Your Physician Immediately: Increase in Pain - Needs a follow-up appointment in 7 to 10 days in surgery clinic
[2019-07-08] MEDS: FENTANYL CITRATE INJ/PF 100 MCG/2 ML AMPUL IV PRN ×2 (09:53→10:04)
--- NOTE | 2019-07-08 10:09 | RADIOLOGY REPORT (SQ) ---
EXAM DESCRIPTION: CHEST SINGLE VIEW COMPLETED DATE/TIME: 07/08/2019 9:57 am REASON FOR STUDY: Port-A-Cath placement COMPARISON: None. EXAM PARAMETERS: NUMBER OF VIEWS: One view. TECHNIQUE: Single frontal radiographic view of the chest acquired. RADIATION DOSE: NA LIMITATIONS: None. FINDINGS: LUNGS AND PLEURA: No opacities, masses or pneumothorax. No pleural effusion. MEDIASTINUM AND HILAR STRUCTURES: No masses. Contour normal. HEART AND VASCULAR STRUCTURES: Heart normal in size. Normal vasculature. BONES: No acute findings. HARDWARE: Vascular port, tip of the catheter at the level of the superior vena cava. OTHER: No other significant finding. IMPRESSION: NO PNEUMOTHORAX FOLLOWING PORT PLACEMENT. TECHNICAL DOCUMENTATION: JOB ID: [id number] [employer]- All Rights Reserved Reading location - IP/workstation name: [email or web address]
[2019-07-08] MEDS ORDERED: OXYCODONE-ACETAMINOPHEN 5-325 MG TABLET ONE (10:30)
--- NOTE | 2019-07-08 12:28 | RADIOLOGY REPORT (SQ) ---
EXAM DESCRIPTION: FLUORO/CV PLACEMENT COMPLETED DATE/TIME: 07/08/2019 10:21 am REASON FOR STUDY: PORTACATH PLCMT LEFT SIDE ASST WITH FLUORO IN OR C18.2 MALIGNANT NEOPLASM OF ASC ENDING COLON COMPARISON: None. FLUOROSCOPY TIME: 3.1 minutes. 7 images saved to PACS. TECHNIQUE: Intra-operative images acquired during surgical procedure to evaluate progress. NUMBER OF IMAGES: 7 images. LIMITATIONS: None. FINDINGS: Images of the chest acquired during catheter placement. IMPRESSION: IMAGE(S) OBTAINED DURING PROCEDURE. COMMENT: Quality ID 145: Final reports for procedures using fluoroscopy that document radiation exp osure indices, or exposure time and number of fluorographic images (if radiation exposure indices are not available) Please consult full operative report of the attending physician for description of the procedure. TECHNICAL DOCUMENTATION: JOB ID: [id number] [employer]- All Rights Reserved Reading location - IP/workstation name: [email or web address]
[2019-07-08 13:14] VITALS: BP 156/100
== END 2019-07-08 12:15 | disposition home or self-care (01) ==
LOC: OROUT 06:30
PROVIDERS: ATTEND Surgery
DX: C18.2 Malignant neoplasm of ascending colon (principal); E66.9 Obesity, unspecified
CPT/HCPCS: 36561; 36415; 85027; 71045; 77001; 00532; C1769; C1788; J2250; J3490 ×2; J0690; J3010; J2405; J2704; J1642; 532

== ENCOUNTER 2019-07-20 09:00 | Outpatient (CLI) | payer SELFPAY ==
[~2019-07-20 09:00] MED LIST changes: -CEFAZOLIN 1 GM/D5W RTU 1 GM/50 ML RTUPB IV ONE; -CEFAZOLIN 1 GM/D5W RTU 1 GM/50 ML RTUPB IV PRN; +CONTAINER EMPTY IV PRN; +DEXAMETHASONE 10 MG in NS 50 ML IV PRN; +DEXTROSE 5% IV PRN; +DEXTROSE 5%-WATER 250 ML IV PRN; +DISPOSABLE IV PRN; +FLUOROURACIL IV PRN; -LACTATED RINGERS 1000 ML IV PRN; +LEUCOVORIN CALCIUM IV PRN; -LIDOCAINE 0.5% INJ-PF (5 MG/ML) 50 ML SDV SUBCUT PRN; +OXALIPLATIN IV PRN; +PALONOSETRON 0.25 MG/5 ML VIAL IV PRN; +WATER IV PRN
[2019-07-20 09:50] VITALS: BP 123/84
== END 2019-07-20 13:45 | disposition home or self-care (01) ==
LOC: II 09:00 → 5TH 09:06 → II 13:45
PROVIDERS: ATTEND Internal Medicine Hematology & Oncology
PROC: 3E04305 Introduction of Other Antineoplastic into Central Vein, Percutaneous Approach (ICD-10-PCS; principal; 2019-07-20)
PROC: 3E0433Z Introduction of Anti-inflammatory into Central Vein, Percutaneous Approach (ICD-10-PCS; 2019-07-20)
PROC: 3E043GC Introduction of Other Therapeutic Substance into Central Vein, Percutaneous Approach (ICD-10-PCS; 2019-07-20)
DX: Z51.11 Encounter for antineoplastic chemotherapy (principal); C18.2 Malignant neoplasm of ascending colon
CPT/HCPCS: 96411; 96413; 96415; 96416; 96367; 96368; 96375; J3490 ×2; J9190; J7060; J1100; J1642; J9263; J2469; 96409; 96417

== ENCOUNTER 2019-08-03 08:49 | Outpatient (CLI) | payer SELFPAY ==
[~2019-08-03 08:49] MED LIST changes: -DEXAMETHASONE 10 MG in NS 50 ML IV PRN; +DEXAMETHASONE SOD PHOSPHATE 10 MG in NORMAL SALINE 50 ML IV PRN; +PALONOSETRON 0.25 MG/5 ML SDV IV PRN; -PALONOSETRON 0.25 MG/5 ML VIAL IV PRN
[2019-08-03 09:18] VITALS: BP 141/91
[2019-08-03] MEDS: LORAZEPAM INJ 2 MG/1 ML VIAL IV PRN ×2 (09:28→09:30)
== END 2019-08-03 12:51 | disposition home or self-care (01) ==
LOC: II 08:49 → 5TH 08:52 → II 12:51
PROVIDERS: ATTEND Internal Medicine Hematology & Oncology
PROC: 3E04305 Introduction of Other Antineoplastic into Central Vein, Percutaneous Approach (ICD-10-PCS; principal; 2019-08-03)
PROC: 3E0433Z Introduction of Anti-inflammatory into Central Vein, Percutaneous Approach (ICD-10-PCS; 2019-08-03)
PROC: 3E043GC Introduction of Other Therapeutic Substance into Central Vein, Percutaneous Approach (ICD-10-PCS; 2019-08-03)
DX: Z51.11 Encounter for antineoplastic chemotherapy (principal); C18.2 Malignant neoplasm of ascending colon
CPT/HCPCS: 96409; 96413; 96415; 96416; 96367; 96375; 96417; J3490 ×2; J9190; J2060; J7060; J1100; J1642; J9263; J2469; 96368; 96411

== ENCOUNTER 2019-08-17 08:50 | Outpatient (CLI) | payer SELFPAY ==
[~2019-08-17 08:50] MED LIST changes: +DEXAMETHASONE 10 MG in NS 50 ML IV PRN; -DEXAMETHASONE SOD PHOSPHATE 10 MG in NORMAL SALINE 50 ML IV PRN; +LORAZEPAM INJ 2 MG/1 ML VIAL IV PRN; -PALONOSETRON 0.25 MG/5 ML SDV IV PRN; +PALONOSETRON 0.25 MG/5 ML VIAL IV PRN
[2019-08-17 10:40] VITALS: BP 124/72
== END 2019-08-17 13:35 | disposition home or self-care (01) ==
LOC: II 08:50 → 5TH 08:50 → II 13:35
PROVIDERS: ATTEND Internal Medicine Hematology & Oncology
PROC: 3E04305 Introduction of Other Antineoplastic into Central Vein, Percutaneous Approach (ICD-10-PCS; principal; 2019-08-17)
PROC: 3E0433Z Introduction of Anti-inflammatory into Central Vein, Percutaneous Approach (ICD-10-PCS; 2019-08-17)
PROC: 3E043GC Introduction of Other Therapeutic Substance into Central Vein, Percutaneous Approach (ICD-10-PCS; 2019-08-17)
DX: Z51.11 Encounter for antineoplastic chemotherapy (principal); C18.2 Malignant neoplasm of ascending colon
CPT/HCPCS: 96409; 96413; 96415; 96416; 96367; 96375; 96417; J3490 ×2; J9190; J2060; J7060; J1100; J9263; J2469; J1642; 96368; 96411

== ENCOUNTER 2019-08-19 10:35 | Outpatient (CLI) | payer SELFPAY ==
[~2019-08-19 10:35] MED LIST changes: -CONTAINER EMPTY IV PRN; -DEXAMETHASONE 10 MG in NS 50 ML IV PRN; -DEXTROSE 5% IV PRN; -DEXTROSE 5%-WATER 250 ML IV PRN; -DISPOSABLE IV PRN; -FLUOROURACIL IV PRN; -LEUCOVORIN CALCIUM IV PRN; -LORAZEPAM INJ 2 MG/1 ML VIAL IV PRN; +NORMAL SALINE 1000 ML 1,000 ML IV PRN; -OXALIPLATIN IV PRN; -PALONOSETRON 0.25 MG/5 ML VIAL IV PRN; -WATER IV PRN
[2019-08-19 10:52] VITALS: BP 138/83
== END 2019-08-19 11:56 | disposition home or self-care (01) ==
LOC: II 10:35 → 5TH 10:37 → II 11:56
PROVIDERS: ATTEND Internal Medicine
PROC: 3E0437Z Introduction of Electrolytic and Water Balance Substance into Central Vein, Percutaneous Approach (ICD-10-PCS; principal; 2019-08-19)
DX: C18.2 Malignant neoplasm of ascending colon (principal)
CPT/HCPCS: 96360

== ENCOUNTER → 2019-08-25 | Outpatient (CLI) | payer SELFPAY ==
--- NOTE | 2019-08-25 12:21 | RADIOLOGY REPORT (SQ) ---
EXAM DESCRIPTION: U/S ABDOMEN LIMITED W/O DOP COMPLETED DATE/TIME: 08/25/2019 11:07 am REASON FOR STUDY: (C18.2)MALIGNANT NEOPLASM OF ASCENDING COLON C18.2 MALIGNANT NEOPLASM OF ASCENDIN G COLON COMPARISON: None. TECHNIQUE: Dynamic and static grayscale images acquired of the localized site of clinical concern an d recorded on PACS. Additional selected color Doppler and spectral images recorded. SITE OF CONCERN: Right lower abdomen LIMITATIONS: None. FINDINGS: SKIN AND SUBCUTANEOUS TISSUES: No masses. No fluid collections. No edema. No foreign sole s. DEEP SOFT TISSUES/MUSCLES: There is apparent defect within the right lower anterior abdominal wall co mpatible with a fat and bowel containing hernia. This area measures approximately 7 cm in maximal sp an and is noted with the patient in the upright position. This area completely reduces with patient in the supine position. VASCULAR: Not visualized. OTHER: No other significant finding. IMPRESSION: Approximately 7 cm fat and bowel containing hernia within the right lower anterior abdom inal wall. The hernia is apparent in the upright position and fully reducible in the supine position . TECHNICAL DOCUMENTATION: JOB ID: [id number] [employer]- All Rights Reserved Reading location - IP/workstation name: [email or web address]
== END ==
LOC: RAD 10:33
PROVIDERS: ATTEND Physician Assistant Medical
DX: C18.2 Malignant neoplasm of ascending colon (principal); K43.9 Ventral hernia without obstruction or gangrene; R10.9 Unspecified abdominal pain
CPT/HCPCS: 76705

== ENCOUNTER 2019-08-31 08:56 | Outpatient (CLI) | payer SELFPAY ==
[~2019-08-31 08:56] MED LIST changes: +CONTAINER EMPTY IV PRN; +DEXAMETHASONE SOD PHOSPHATE 10 MG in NORMAL SALINE 50 ML IV PRN; +DEXTROSE 5% IV PRN; +DEXTROSE 5%-WATER 250 ML IV PRN; +DISPOSABLE IV PRN; +FLUOROURACIL IV PRN; +LEUCOVORIN CALCIUM IV PRN; +LORAZEPAM INJ 2 MG/1 ML VIAL IV PRN; -NORMAL SALINE 1000 ML 1,000 ML IV PRN; +OXALIPLATIN IV PRN; +PALONOSETRON 0.25 MG/5 ML SDV IV PRN; +WATER IV PRN
[2019-08-31 09:26] VITALS: BP 161/84
[2019-08-31] MEDS ORDERED: CONTAINER EMPTY IV PRN (10:00)
[2019-08-31] MEDS ORDERED: FLUOROURACIL IV PRN (10:00)
== END 2019-08-31 13:53 | disposition home or self-care (01) ==
LOC: II 08:56 → 5TH 08:57 → II 13:53
PROVIDERS: ATTEND Internal Medicine
PROC: 3E04305 Introduction of Other Antineoplastic into Central Vein, Percutaneous Approach (ICD-10-PCS; principal; 2019-08-31)
PROC: 3E0433Z Introduction of Anti-inflammatory into Central Vein, Percutaneous Approach (ICD-10-PCS; 2019-08-31)
PROC: 3E043GC Introduction of Other Therapeutic Substance into Central Vein, Percutaneous Approach (ICD-10-PCS; 2019-08-31)
DX: Z51.11 Encounter for antineoplastic chemotherapy (principal); C18.2 Malignant neoplasm of ascending colon
CPT/HCPCS: 96409; 96413; 96415; 96416; 96367; 96375; 96417; J3490 ×2; J9190; J2060; J7060; J1100; J9263; J2469; J1642; 96368; 96411

== ENCOUNTER 2019-09-02 11:00 | Outpatient (CLI) | payer SELFPAY ==
[~2019-09-02 11:00] MED LIST changes: -CONTAINER EMPTY IV PRN; -DEXAMETHASONE SOD PHOSPHATE 10 MG in NORMAL SALINE 50 ML IV PRN; -DEXTROSE 5% IV PRN; -DEXTROSE 5%-WATER 250 ML IV PRN; -DISPOSABLE IV PRN; -FLUOROURACIL IV PRN; -LEUCOVORIN CALCIUM IV PRN; -LORAZEPAM INJ 2 MG/1 ML VIAL IV PRN; +NORMAL SALINE 1000 ML 1,000 ML IV PRN; -OXALIPLATIN IV PRN; -PALONOSETRON 0.25 MG/5 ML SDV IV PRN; -WATER IV PRN
[2019-09-02 11:16] VITALS: BP 140/91
== END 2019-09-02 12:30 | disposition home or self-care (01) ==
LOC: II 11:00 → 5TH 11:15 → II 12:30
PROVIDERS: ATTEND Internal Medicine
PROC: 3E0437Z Introduction of Electrolytic and Water Balance Substance into Central Vein, Percutaneous Approach (ICD-10-PCS; principal; 2019-09-02)
DX: C18.2 Malignant neoplasm of ascending colon (principal)
CPT/HCPCS: 96360

== ENCOUNTER 2019-09-28 09:08 | Outpatient (CLI) | payer SELFPAY ==
[~2019-09-28 09:08] MED LIST changes: +CONTAINER EMPTY IV PRN; +DEXAMETHASONE SOD PHOSPHATE 10 MG in NORMAL SALINE 50 ML IV PRN; +DEXTROSE 5% IV PRN; +DEXTROSE 5%-WATER 250 ML IV PRN; +DISPOSABLE IV PRN; +FLUOROURACIL IV PRN; +LEUCOVORIN CALCIUM IV PRN; +LORAZEPAM INJ 2 MG/1 ML VIAL IV PRN; -NORMAL SALINE 1000 ML 1,000 ML IV PRN; +OXALIPLATIN IV PRN; +PALONOSETRON 0.25 MG/5 ML SDV IV PRN; +PALONOSETRON 0.25 MG/5 ML VIAL IV PRN; +WATER IV PRN
[2019-09-28] MEDS ORDERED: DEXAMETHASONE 10 MG in NS 50 ML IV PRN (09:55)
[2019-09-28 10:35] VITALS: BP 133/80
== END 2019-09-28 13:46 | disposition home or self-care (01) ==
LOC: II 09:08 → 5TH 10:34 → II 13:46
PROVIDERS: ATTEND Internal Medicine
DX: Z51.11 Encounter for antineoplastic chemotherapy (principal); C18.2 Malignant neoplasm of ascending colon
CPT/HCPCS: 96411; 96413; 96415; 96416; 96367; 96368; 96375; J3490 ×2; J9190; J2060; J7060; J1100; J9263; J2469 ×2; 96409; 96417

== ENCOUNTER 2019-09-30 09:35 | Outpatient (CLI) | payer SELFPAY ==
[~2019-09-30 09:35] MED LIST changes: -CONTAINER EMPTY IV PRN; -DEXAMETHASONE SOD PHOSPHATE 10 MG in NORMAL SALINE 50 ML IV PRN; -DEXTROSE 5% IV PRN; -DEXTROSE 5%-WATER 250 ML IV PRN; -DISPOSABLE IV PRN; -FLUOROURACIL IV PRN; -LEUCOVORIN CALCIUM IV PRN; -LORAZEPAM INJ 2 MG/1 ML VIAL IV PRN; +NORMAL SALINE 1000 ML @ AS DIRECTED IV PRN; -OXALIPLATIN IV PRN; -PALONOSETRON 0.25 MG/5 ML SDV IV PRN; -PALONOSETRON 0.25 MG/5 ML VIAL IV PRN; -WATER IV PRN
[2019-09-30 09:52] VITALS: BP 145/81
== END 2019-09-30 10:52 | disposition home or self-care (01) ==
LOC: II 09:35 → 5TH 09:37 → II 10:52
PROVIDERS: ATTEND Internal Medicine
DX: C18.2 Malignant neoplasm of ascending colon (principal)
CPT/HCPCS: 96360; J1642

== ENCOUNTER 2019-10-14 08:38 | Outpatient (CLI) | payer SELFPAY ==
[2019-10-14] MEDS ORDERED: NORMAL SALINE 1000 ML 1,000 ML IV PRN (08:57)
[2019-10-14 08:58] VITALS: BP 156/91
== END 2019-10-14 10:07 | disposition home or self-care (01) ==
LOC: II 08:38 → 5TH 08:51 → II 10:07
PROVIDERS: ATTEND Internal Medicine
DX: C18.2 Malignant neoplasm of ascending colon (principal)
CPT/HCPCS: 96360

== ENCOUNTER 2019-10-26 08:39 | Outpatient (CLI) | payer SELFPAY ==
[~2019-10-26 08:39] MED LIST changes: +DEXAMETHASONE 10 MG in NS 50 ML IV PRN; +DEXTROSE 5% IV PRN; +DEXTROSE 5%-WATER 250 ML IV PRN; +DISPOSABLE IV PRN; +FLUOROURACIL IV PRN; +LEUCOVORIN CALCIUM IV PRN; +LORAZEPAM INJ 2 MG/1 ML VIAL IV PRN; -NORMAL SALINE 1000 ML @ AS DIRECTED IV PRN; +OXALIPLATIN IV PRN; +PALONOSETRON 0.25 MG/5 ML VIAL IV PRN; +WATER IV PRN
[2019-10-26 09:16] VITALS: BP 137/70
[2019-10-26] MEDS: CONTAINER EMPTY IV PRN ×2 (13:45→13:47)
[2019-10-26] MEDS: FLUOROURACIL IV PRN ×2 (13:45→13:47)
== END 2019-10-26 14:00 | disposition home or self-care (01) ==
LOC: II 08:39 → 5TH 08:41 → II 14:00
PROVIDERS: ATTEND Internal Medicine
DX: Z51.11 Encounter for antineoplastic chemotherapy (principal); C18.2 Malignant neoplasm of ascending colon
CPT/HCPCS: 96409; 96413; 96415; 96416; 96367; 96375; 96417; J3490 ×2; J9190; J2060; J7060; J1100; J9263; J2469; J1642; 96368; 96411